=== PATIENT | female | born 1975 | race Caucasian/White ===

== ENCOUNTER 2019-02-01 06:48 | Emergency (ER) | payer BC ==
[~2019-02-01] VITALS: Ht 162.6 cm; Wt 53.0 kg
[2019-02-01 10:21] VITALS: BP 124/73
== END 2019-02-01 10:28 | disposition home or self-care (01) ==
LOC: ED 08:28
DX: S33.5XXA Sprain of ligaments of lumbar spine, initial encounter (principal); W20.8XXA Other cause of strike by thrown, projected or falling object, initial encounter; Y93.89 Activity, other specified; Y92.89 Other specified places as the place of occurrence of the external cause; Y99.8 Other external cause status
CPT/HCPCS: 36415; 72110; 80053; 84484; 85025; 93005; 96372; 99284; J1170